=== PATIENT | female | born 1985 | race American Indian/Alaskan Native ===

== ENCOUNTER 2016-12-07 08:43 | Emergency (ER) | payer SELFPAY ==
[2016-12-07 09:00] VITALS: BP 133/95
[2016-12-07 09:20] LABS: Basophils % (Auto) 0.4 % (0.0-1.8); Eosinophils % (Auto) 0.5 % (0.0-4.3); Hematocrit 41.8 % (30.3-42.9); Hemoglobin 14.1 gm/dl (10.1-14.3); Mean Corpuscular HGB Conc 34 % (30-34); Mean Corpuscular Hemoglobin 37 pg (28-32); Mean Corpuscular Volume 108 fl (79-97); Platelet Count 222 K/mm3 (140-440); Red Blood Count 3.88 M/mm3 (3.65-5.03); Red Cell Distribution Width 15.2 % (13.2-15.2); White Blood Count 3.8 K/mm3 (4.5-11.0)
[2016-12-07 09:30] LABS: Anion Gap 17 mmol/L; BUN/Creatinine Ratio 12.85; Blood Urea Nitrogen 9 mg/dL (7-17); Calcium 9.4 mg/dL (8.4-10.2); Carbon Dioxide 26 mmol/L (22-30); Chloride 97.9 mmol/L (98-107); Glucose 101 mg/dL (65-100); Potassium 3.8 mmol/L (3.6-5.0); Sodium 137 mmol/L (137-145)
== END 2016-12-07 15:30 | disposition left against medical advice (07) ==
LOC: ED 08:43
DX: K92.1 Melena (principal); K92.0 Hematemesis; F17.200 Nicotine dependence, unspecified, uncomplicated; Z88.8 Allergy status to other drugs, medicaments and biological substances; Z53.21 Procedure and treatment not carried out due to patient leaving prior to being seen by health care provider
CPT/HCPCS: 36415; 80048; 85025

== ENCOUNTER 2018-09-04 18:00 | Emergency (ER) | payer MEDICAID, OTHER ==
[2018-09-04] MEDS ORDERED: TYLENOL ONE (18:11)
[2018-09-04] MEDS ORDERED: TYLENOL PO ONE (18:13)
[2018-09-04] MEDS ORDERED: NACL 0.9% 1000 ML IV ONE (21:08)
--- NOTE | 2018-09-04 21:10 | Emergency Department Report ---
ED General Adult HPI - General Chief complaint: Fever Stated complaint: SOB/CHEST PAIN Time Seen by Provider: 09/04/18 21:05 Source: patient Mode of arrival: Ambulatory Limitations: No Limitations - History of Present Illness Initial comments: 32-year-old female with a past medical history of alcohol abuse presents with a complaint of chest back and abdominal pain with inspiration. Patient states that she's been having cough for the past couple of weeks. Patient states it began to hurt when she breathes in today his face also hurts to cough. This is taken ibuprofen PM with minimal relief. Patient states she never received a flu shot or vomiting. Patient denies any history of PE or DVT. Patient complains of chills but denies diarrhea. Patient admits to daily alcohol use as well and states that her last use was 2 days ago. - Related Data Previous Rx's Medication Instructions Recorded Last Taken Type Ranitidine HCl [Zantac 150 MG TAB] 150 mg PO BID #30 tablet 04/03/16 Unknown Rx diphenhydrAMINE [Benadryl CAP] 25 mg PO Q6HR #30 capsule 04/03/16 Unknown Rx HYDROcodone/APAP 7.5-325 [[place] 1 each PO Q8HR PRN #10 tablet 06/14/16 Unknown Rx 7.5-325 mg TAB] Omeprazole Magnesium [PriLOSEC Otc] 20 mg PO QDAY #14 tablet. 06/14/16 Unknown Rx ALBUTEROL Inhaler(NF) [VENTOLIN 1 puff IH BID #1 inha 09/05/18 Unknown Rx Inhaler(NF)] Ciprofloxacin HCl [Ciprofloxacin 500 mg PO Q12HR #14 tab 09/05/18 Unknown Rx TAB] traMADol [Ultram] 50 mg PO Q6HR PRN #20 tablet 09/05/18 Unknown Rx Allergies Allergy/AdvReac Type Severity Reaction Status Date / Time steroids Allergy Swelling Uncoded 09/04/18 18:10 ED Review of Systems ROS: Stated complaint: SOB/CHEST PAIN Other details as noted in HPI Constitutional: chills, fever Eyes: denies: eye pain, eye discharge, vision change ENT: denies: ear pain, throat pain Respiratory: shortness of breath Cardiovascular: chest pain Endocrine: no symptoms reported Gastrointestinal: abdominal pain Genitourinary: denies: urgency, dysuria, discharge Musculoskeletal: back pain Skin: denies: rash, lesions Neurological: denies: headache, weakness, paresthesias Psychiatric: denies: anxiety, depression Hematological/Lymphatic: denies: easy bleeding, easy bruising ED Past Medical Hx - Past Medical History Additional medical history: MVP - Surgical History Past Surgical History?: No - Social History Smoking Status: Current Every Day Smoker Substance Use Type: None - Medications Home Medications: Home Medications Medication Instructions Recorded Confirmed Last Taken Type Ranitidine HCl [Zantac 150 MG TAB] 150 mg PO BID #30 tablet 04/03/16 Unknown Rx diphenhydrAMINE [Benadryl CAP] 25 mg PO Q6HR #30 capsule 04/03/16 Unknown Rx HYDROcodone/APAP 7.5-325 [[place] 1 each PO Q8HR PRN #10 tablet 06/14/16 Unknown Rx 7.5-325 mg TAB] Omeprazole Magnesium [PriLOSEC Otc] 20 mg PO QDAY #14 tablet.dr 06/14/16 Unknown Rx ALBUTEROL Inhaler(NF) [VENTOLIN 1 puff IH BID #1 inha 09/05/18 Unknown Rx Inhaler(NF)] Ciprofloxacin HCl [Ciprofloxacin 500 mg PO Q12HR #14 tab 09/05/18 Unknown Rx TAB] traMADol [Ultram] 50 mg PO Q6HR PRN #20 tablet 09/05/18 Unknown Rx ED Physical Exam - General Limitations: No Limitations General appearance: alert, other (mild distress; uncomfortable) - Head Head exam: Present: atraumatic, normocephalic - Eye Eye exam: Present: scleral icterus (mild component of scleral icterus) - ENT ENT exam: Present: mucous membranes dry - Neck Neck exam: Present: normal inspection - Respiratory Respiratory exam: Present: decreased breath sounds. Absent: respiratory distress - Cardiovascular Cardiovascular Exam: Present: normal rhythm, tachycardia. Absent: systolic murmur, diastolic murmur, rubs, gallop - GI/Abdominal GI/Abdominal exam: Present: soft, tenderness (diffusely in abdomen), normal bowel sounds. Absent: guarding, rebound - Extremities Exam Extremities exam: Present: normal inspection - Back Exam Back exam: Present: normal inspection - Neurological Exam Neurological exam: Present: alert, oriented X3 - Psychiatric Psychiatric exam: Present: normal affect, normal mood - Skin Skin exam: Present: warm, dry, intact, normal color. Absent: rash ED Course Vital Signs 09/04/18 09/04/18 09/04/18 18:10 21:17 22:00 Temperature 101.5 F H 98.6 F Pulse Rate 140 H 114 H 109 H Pulse Rate [ Anterior Bilateral Throughout] Respiratory 22 15 18 Rate Respiratory Rate [Anterior Bilateral Throughout] Blood Pressure 148/95 125/90 Blood Pressure 110/73 [Left] O2 Sat by Pulse 97 100 99 Oximetry 09/04/18 09/04/18 09/04/18 22:32 23:00 23:05 Temperature Pulse Rate 100 H 101 H 103 H Pulse Rate [ Anterior Bilateral Throughout] Respiratory 18 14 22 Rate Respiratory Rate [Anterior Bilateral Throughout] Blood Pressure 125/90 115/79 115/79 Blood Pressure [Left] O2 Sat by Pulse 100 100 100 Oximetry 09/04/18 09/04/18 09/05/18 23:31 23:45 02:00 Temperature Pulse Rate 107 H Pulse Rate [ 115 H 118 H Anterior Bilateral Throughout] Respiratory 17 Rate Respiratory 14 14 Rate [Anterior Bilateral Throughout] Blood Pressure 121/84 Blood Pressure [Left] O2 Sat by Pulse 100 Oximetry ED Medical Decision Making - Lab Data Result diagrams: 09/04/18 22:38 09/04/18 22:38 - EKG Data EKG shows normal: sinus rhythm Rate: tachycardia - EKG Data Interpretation: nonspecific ST-T wave georgie - Medical Decision Making Patient received Tylenol therapy for her fever. Patient has had a CT abdomen and pelvis which shows no acute pathology and a CT anterior chest which shows no thoracic pathology either. Patient to be treated for her UTI with antibiotic therapy and will give albuterol and Ultram for when necessary pain relief. - Differential Diagnosis Pneumonia; UTI; Dehydration; Anemia; Critical care attestation.: If time is entered above; I have spent that time in minutes in the direct care of this critically ill patient, excluding procedure time. ED Disposition Clinical Impression: Urinary tract infection, Pleurisy, Viral illness Disposition: - TO HOME OR SELFCARE Is pt being admited?: No Condition: Stable Instructions: Viral Syndrome (ED), Pleurisy (ED), Urinary Tract Infection in Women (ED) Prescriptions: ALBUTEROL Inhaler(NF) [VENTOLIN Inhaler(NF)] 1 puff IH BID #1 inha Ciprofloxacin HCl [Ciprofloxacin TAB] 500 mg PO Q12HR #14 tab traMADol [Ultram] 50 mg PO Q6HR PRN #20 tablet PRN Reason: Pain Referrals: EDMAR CHUN MD [Primary Care Provider] - 3-5 Days Time of Disposition: 02:36 Print Language: WOLOF
[2018-09-04] MEDS ORDERED: NACL 0.9% 250ML 250 ML ONE (21:30)
[2018-09-04 22:51] LABS: Basophils % (Auto) 0.1 % (0.0-1.8); Eosinophils % (Auto) 0.1 % (0.0-4.3); Hematocrit 39.8 % (30.3-42.9); Hemoglobin 13.4 gm/dl (10.1-14.3); Lymphocytes # (Auto) 0.8 K/mm3 (1.2-5.4); Lymphocytes % (Auto) 6.7 % (13.4-35.0); Mean Corpuscular HGB Conc 34 % (30-34); Mean Corpuscular Volume 109 fl (79-97); Monocytes # (Auto) 0.5 K/mm3 (0.0-0.8); Monocytes % (Auto) 4.3 % (0.0-7.3); Platelet Count 181 K/mm3 (140-440); Red Blood Count 3.65 M/mm3 (3.65-5.03); Red Cell Distribution Width 15.2 % (13.2-15.2)
--- NOTE | 2018-09-04 22:52 | XRay Report ---
FINAL REPORT EXAM: XR CHEST 1V AP HISTORY: shortness of breath TECHNIQUE: upright single view chest PRIORS: None. FINDINGS: Cardiac and mediastinal contours are unremarkable. No focal pulmonary infiltrate is identified. No pleural fluid collection seen. Pulmonary vasculature is unremarkable. IMPRESSION: Negative single-view chest
[2018-09-04 22:54] LABS: Bilirubin,Urine NEG (Negative); Blood,Urine LG (Negative); Color,Urine Yellow (Yellow); Mucus,Urine FEW /HPF; Protein,Urine <15 mg/dL mg/dL (Negative); Urobilinogen,Urine < 2.0 mg/dL (<2.0)
[2018-09-04] MEDS ORDERED: PROVENTIL IH ONE (22:54)
[2018-09-04 23:07] LABS: Alanine Aminotransferase 75 units/L (7-56); BUN/Creatinine Ratio 15; Blood Urea Nitrogen 9 mg/dL (7-17); Calcium 8.9 mg/dL (8.4-10.2); Hemolysis Index 15
--- NOTE | 2018-09-05 00:28 | Cat Scan Report ---
FINAL REPORT EXAM: CT ABDOMEN PELVIS WO CON HISTORY: abdominal pain TECHNIQUE: Helical CT scan through the abdomen and pelvis without contrast. Images are reconstructed in the sagittal and coronal planes. PRIORS: None. FINDINGS: Solid organ and bowel evaluation is limited without intravenous contrast. Bowel evaluation is limited without oral contrast. The lung bases are clear. The liver, gallbladder, pancreas, spleen and adrenal glands appear grossly normal. The kidneys appear grossly normal. The uterus appears grossly normal. The ovaries are enlarged. There are multiple phleboliths in the pe lvis. The stomach appears grossly within normal limits. The small bowel is mildly to moderate fluid distended. There are a few air-fluid levels in the left u pper quadrant. The right and transverse colon are moderately gas and fluid distended and contain air- fluid levels. The left colon appears normal. A normal-appearing appendix is identified. The abdominal aorta has a normal diameter. The bones and subcutaneous soft tissues are unremarkable for age. IMPRESSION: 1. Nonspecific bowel gas pattern. Question ileus. 2. Enlarged ovaries. Further evaluation with ultrasound is recommended.
[2018-09-05] MEDS ORDERED: MORPHINE IV ONE (02:03)
[2018-09-05] MEDS ORDERED: ZOFRAN IV ONE (02:04)
--- NOTE | 2018-09-05 02:10 | Cat Scan Report ---
FINAL REPORT PROCEDURE: CT ANGIO CHEST TECHNIQUE: Computerized axial tomographic angiography of the chest and pulmonary arteries was perfor med after the IV injection of iodinated nonionic contrast. The image data was postprocessed using max imum intensity projection (MIP) and 2-dimensional multiplanar reformatted (MPR) techniques. The exami nation is specifically tailored to the evaluation of the pulmonary arteries per clinical request. HISTORY: Short of breath 786.09, chest pain 786.50, rigoberto pain and difficulty breathing COMPARISON: No prior studies are available for comparison. FINDINGS: Heart and pericardium: Normal. Thoracic aorta: Normal. Pulmonary vasculature: Normal. No pulmonary emboli. Lymph nodes: No enlarged thoracic lymph nodes. Lungs: Normal. Pleural space: No effusion, thickening, or pneumothorax. Musculoskeletal structures: No significant abnormality. Upper abdominal structures: No significant abnormality. IMPRESSION: Normal Examination.
[2018-09-05 02:30] VITALS: BP 121/84
== END 2018-09-05 02:50 | disposition home or self-care (01) ==
LOC: ED 18:00
DX: N39.0 Urinary tract infection, site not specified (principal); B34.9 Viral infection, unspecified; R09.1 Pleurisy; F17.200 Nicotine dependence, unspecified, uncomplicated; Z88.8 Allergy status to other drugs, medicaments and biological substances
CPT/HCPCS: 36415; 71045; 71275; 74176; 80053; 81001; 82140; 82550; 83735; 84484; 84703; 85025; 86850; 86900; 86901; 87040; 87086; 87400; 93005; 93010; 94640; 96374; 96375; 99285; G0480; J2270; J2405; J7030; J7050; Q9967; 80320

== ENCOUNTER 2019-01-28 19:37 | Emergency (ER) | payer SELFPAY | END 2019-01-28 19:40 | disposition left against medical advice (07) | LOC: ED 19:37 | DX: R07.89 Other chest pain (principal); Z53.21 Procedure and treatment not carried out due to patient leaving prior to being seen by health care provider ==

== ENCOUNTER 2020-06-16 15:18 | Emergency (ER) | payer SELFPAY ==
[2020-06-16 15:57] VITALS: BP 130/86
--- NOTE | 2020-06-16 15:59 | Event Note ---
ED Screening Note ED Screening Note: two days ago +subjective fever +cough no SOB has right sided back pain states that she has pain with coughing and taking a deep breathing no n/v/d no leg swelling no CP no recent travel, no recent surgery, no sick contacts, no hormone use PMHx Mitral valve regurg allergy: steroids LNMP: last month This initial assessment/diagnostic orders/clinical plan/treatment(s) is/are subject to change based on patients health status, clinical progression and re- assessment by fellow clinical providers in the ED. Further treatment and workup at subsequent clinical providers discretion. Patient/guardian urged not to elope from the ED as their condition may be serious if not clinically assessed and managed. Initial orders include: labs, UA, urine preg, CXR
[2020-06-16 16:43] LABS: Basophils % (Auto) 0.1 % (0.0-1.8); Eosinophils % (Auto) 0.3 % (0.0-4.3); Hematocrit 39.9 % (30.3-42.9); Hemoglobin 13.5 gm/dl (10.1-14.3); Lymphocytes # (Auto) 0.5 K/mm3 (1.2-5.4); Lymphocytes % (Auto) 13.8 % (13.4-35.0); Mean Corpuscular HGB Conc 34 % (30-34); Mean Corpuscular Volume 103 fl (79-97); Monocytes # (Auto) 0.3 K/mm3 (0.0-0.8); Monocytes % (Auto) 7.7 % (0.0-7.3); Platelet Count 164 K/mm3 (140-440); Red Blood Count 3.88 M/mm3 (3.65-5.03); Red Cell Distribution Width 16.9 % (13.2-15.2)
[2020-06-16 16:47] LABS: Alanine Aminotransferase 34 units/L (7-56); Albumin 4.1 g/dL (3.9-5); BUN/Creatinine Ratio 14; Blood Urea Nitrogen 11 mg/dL (7-17); Calcium 9.7 mg/dL (8.4-10.2); Hemolysis Index 21
[2020-06-16 18:24] LABS: Bacteria,Urine 1+ /HPF (Negative); Bilirubin,Urine NEG (Negative); Blood,Urine MOD (Negative); Color,Urine Amber (Yellow); Mucus,Urine 1+ /HPF; Protein,Urine >500 mg/dL (Negative)
[2020-06-16 19:10] LABS: HCG Qualitative,Urine Negative (Negative)
[2020-06-16] MEDS ORDERED: KETOROLAC 30 MG/1 ML INJ IV ONE (19:34)
[2020-06-16] MEDS ORDERED: SODIUM CHLORIDE 0.9% 1000 ML 1,000 ML IV ONE (19:34)
--- NOTE | 2020-06-16 19:41 | Emergency Department Report ---
ED General Adult HPI - General Chief complaint: Back Pain/Injury Stated complaint: FEVER, BACK PAIN Time Seen by Provider: 06/16/20 15:56 Source: patient Mode of arrival: Ambulatory Limitations: No Limitations - History of Present Illness Initial comments: Patient is a 34-year-old -[place]i female with a history of MVP who presented to the ED with acute onset persistent right flank and right-sided pleuritic chest pain that radiates to the mid posterior thoracic area and right flank for the last 3 days. Patient also complaints of persistent dry cough with pleuritic chest pain worse on the right side. Patient states that she also had subjective fever and chills 2 days ago but treated the same with Tylenol. Patient denies dizziness, syncope, nausea, vomiting, headache, shortness of breath, traumatic injury or heavy lifting, hemoptysis, dysuria, urinary frequency and urgency, diarrhea, sore throat or headache. MD Complaint: Dry cough; pleuritic right-sided chest pain; mid posterior thoracic pain -: Sudden, days(s) (3) Location: chest, back Radiation: back (Mid posterior right-sided thoracic pain) Severity scale (0 -10): 7 Quality: aching, sharp Consistency: constant Improves with: none Worsens with: none Associated Symptoms: denies other symptoms, chest pain (pleuritic chest pain), cough, shortness of breath. denies: confusion, diaphoresis, fever/chills, headaches, loss of appetite, malaise, nausea/vomiting, rash, syncope, weakness, other Treatments Prior to Arrival: none - Related Data Previous Rx's Medication Instructions Recorded Last Taken Type diphenhydrAMINE [Benadryl CAP] 25 mg PO Q6HR #30 capsule 04/03/16 Unknown Rx raNITIdine HCl [Zantac 150 MG TAB] 150 mg PO BID #30 tablet 04/03/16 Unknown Rx HYDROcodone/APAP 7.5-325 [[place] 1 each PO Q8HR PRN #10 tablet 06/14/16 Unknown Rx 7.5-325 mg TAB] Omeprazole Magnesium [PriLOSEC Otc] 20 mg PO QDAY #14 tablet 06/14/16 Unknown Rx ALBUTEROL Inhaler(NF) [VENTOLIN 1 puff IH BID #1 inha 09/05/18 Unknown Rx Inhaler(NF)] Ciprofloxacin HCl [Ciprofloxacin 500 mg PO Q12HR #14 tab 09/05/18 Unknown Rx TAB] traMADoL [Ultram] 50 mg PO Q6HR PRN #20 tablet 09/05/18 Unknown Rx Acetaminophen [Acetaminophen TAB] 1,000 mg PO Q6HR PRN #30 tablet 05/05/19 Unknown Rx Amoxicillin/Potassium Clav 1 each PO BID 10 Days #20 tablet 05/05/19 Unknown Rx [Augmentin 875-125 Tablet] Metoclopramide [Reglan] 10 mg PO Q6H PRN #30 tablet 05/05/19 Unknown Rx diphenhydrAMINE [Benadryl CAP] 25 mg PO Q6HR PRN #30 capsule 05/05/19 Unknown Rx Cyclobenzaprine [Flexeril] 10 mg PO Q12H PRN #20 tablet 06/16/20 Unknown Rx Ketorolac [Toradol] 10 mg PO Q8H PRN #20 tablet 06/16/20 Unknown Rx cephALEXin [Keflex] 500 mg PO Q8HR #30 cap 06/16/20 Unknown Rx Allergies Allergy/AdvReac Type Severity Reaction Status Date / Time steroids Allergy Swelling Uncoded 09/04/18 18:10 ED Review of Systems ROS: Stated complaint: FEVER, BACK PAIN Other details as noted in HPI Constitutional: denies: chills, fever Eyes: denies: eye pain, eye discharge, vision change ENT: denies: ear pain, throat pain Respiratory: cough (dry), shortness of breath. denies: wheezing Cardiovascular: chest pain (right-sided pleuritic chest pain). denies: palpitations, dyspnea on exertion, edema, paroxysmal nocturnal dyspnea Endocrine: no symptoms reported Gastrointestinal: denies: abdominal pain, nausea, vomiting, diarrhea, constipation, hematemesis, hematochezia Genitourinary: denies: urgency, dysuria, frequency, discharge Musculoskeletal: back pain (Right-sided mid-posterior thoracic pain). denies: joint swelling, arthralgia Skin: denies: rash, lesions Neurological: denies: headache, weakness, paresthesias Psychiatric: denies: anxiety, depression Hematological/Lymphatic: denies: easy bleeding, easy bruising ED Past Medical Hx - Past Medical History Previous Medical History?: Yes Additional medical history: MVP - Surgical History Past Surgical History?: No - Social History Smoking Status: Never Smoker Substance Use Type: None - Medications Home Medications: Home Medications Medication Instructions Recorded Confirmed Last Taken Type diphenhydrAMINE [Benadryl CAP] 25 mg PO Q6HR #30 capsule 04/03/16 Unknown Rx raNITIdine HCl [Zantac 150 MG TAB] 150 mg PO BID #30 tablet 04/03/16 Unknown Rx HYDROcodone/APAP 7.5-325 [[place] 1 each PO Q8HR PRN #10 tablet 06/14/16 Unknown Rx 7.5-325 mg TAB] Omeprazole Magnesium [PriLOSEC Otc] 20 mg PO QDAY #14 tablet. 06/14/16 Unknown Rx ALBUTEROL Inhaler(NF) [VENTOLIN 1 puff IH BID #1 inha 09/05/18 Unknown Rx Inhaler(NF)] Ciprofloxacin HCl [Ciprofloxacin 500 mg PO Q12HR #14 tab 09/05/18 Unknown Rx TAB] traMADoL [Ultram] 50 mg PO Q6HR PRN #20 tablet 09/05/18 Unknown Rx Acetaminophen [Acetaminophen TAB] 1,000 mg PO Q6HR PRN #30 tablet 05/05/19 Unknown Rx Amoxicillin/Potassium Clav 1 each PO BID 10 Days #20 tablet 05/05/19 Unknown Rx [Augmentin 875-125 Tablet] Metoclopramide [Reglan] 10 mg PO Q6H PRN #30 tablet 05/05/19 Unknown Rx diphenhydrAMINE [Benadryl CAP] 25 mg PO Q6HR PRN #30 capsule 05/05/19 Unknown Rx Cyclobenzaprine [Flexeril] 10 mg PO Q12H PRN #20 tablet 06/16/20 Unknown Rx Ketorolac [Toradol] 10 mg PO Q8H PRN #20 tablet 06/16/20 Unknown Rx cephALEXin [Keflex] 500 mg PO Q8HR #30 cap 06/16/20 Unknown Rx ED Physical Exam - General Limitations: No Limitations General appearance: alert, in no apparent distress - Head Head exam: Present: atraumatic, normocephalic, normal inspection - Eye Eye exam: Present: normal appearance, PERRL, EOMI Pupils: Present: normal accommodation - ENT ENT exam: Present: normal exam, normal orophraynx, mucous membranes moist, TM's normal bilaterally, normal external ear exam - Neck Neck exam: Present: normal inspection, full ROM - Respiratory Respiratory exam: Present: normal lung sounds bilaterally, chest wall tenderness (Pleuritic right-sided chest tenderness). Absent: respiratory distress, wheezes, rales, rhonchi, stridor, accessory muscle use, decreased breath sounds, prolonged expiratory - Cardiovascular Cardiovascular Exam: Present: normal rhythm, tachycardia, normal heart sounds. Absent: systolic murmur, diastolic murmur, rubs, gallop - GI/Abdominal GI/Abdominal exam: Present: soft, normal bowel sounds. Absent: tenderness, guarding, rebound, hyperactive bowel sounds, hypoactive bowel sounds, organomegaly - Extremities Exam Extremities exam: Present: normal inspection, full ROM, normal capillary refill - Back Exam Back exam: Present: normal inspection, full ROM, tenderness (Palpable right- sided posterior midthoracic paraspinal musculoskeletal tenderness), muscle spasm, paraspinal tenderness - Neurological Exam Neurological exam: Present: alert, oriented X3, CN II-XII intact, normal gait, reflexes normal - Psychiatric Psychiatric exam: Present: normal affect, normal mood - Skin Skin exam: Present: warm, dry, intact, normal color. Absent: rash ED Course Vital Signs 06/16/20 06/16/20 15:34 16:01 Temperature 98.0 F Pulse Rate 114 H 112 H Respiratory 14 Rate Blood Pressure 130/86 O2 Sat by Pulse 99 Oximetry ED Medical Decision Making - Lab Data Result diagrams: 06/16/20 16:09 06/16/20 16:09 - Radiology Data Radiology results: report reviewed, [place] [address] Cat Scan Report Signed Patient: ADDIE GUZMÁN MR#: [id number] : 1985 Acct:[id number] Age/Sex: 34 / F ADM Date: 06/16/20 Loc: ED Attending Dr: Ordering Physician: JOHN URENA Date of Service: 06/16/20 Procedure(s): CT angio chest Accession Number(s): [id number] cc: JOHN URENA CTA CHEST WITH IV CONTRAST INDICATION: SOB, CP, elevated d-dimer. TECHNIQUE: Axial CT images were obtained through the chest after injection of 100 cc Omni 300 IV contrast. 3 plane MIP reconstructions were produced. All CT scans at this location are performed using CT dose reduction for ALARA by means of automated exposure control. COMPARISON: CTA chest 09/05/2018 FINDINGS: PULMONARY ARTERIES: No pulmonary emboli. THORACIC AORTA: No acute abnormality. HEART: Normal. CORONARY ARTERIES: No significant calcification. PLEURA: No pleural effusion. No pneumothorax. LYMPH NODES: No significant adenopathy. LUNGS: No acute air space or interstitial disease. ADDITIONAL FINDINGS: None. UPPER ABDOMEN: Focal fatty infiltration within the caudate and medial lateral hepatic segments abutting the intersegmental fissure. SKELETAL STRUCTURES: No significant osseous abnormality. IMPRESSION: 1. No CT evidence for pulmonary embolism. 2. No acute findings. Signer Name: Jaime Guzman MD Signed: 06/16/2020 8:30 PM Workstation Name: [id number] Transcribed By: TL Dictated By: Jaime Guzman MD Electronically Authenticated By: Jaime Guzman MD Signed Date/Time: 06/16/202029 DD/ 20 TD/TT: Findings [facility] [address] [place] [address] XRay Report Signed Patient: ADDIE GUZMÁN MR#: [id number] : 1985 Acct:[id number] Age/Sex: 34 / F ADM Date: 06/16/20 Loc: ED Attending Dr: Ordering Physician: JOHN URENA Date of Service: 06/16/20 Procedure(s): XR chest routine 2V Accession Number(s): [id number] cc: JOHN URENA Fluoro Time In Minutes: CHEST 2 VIEWS INDICATION / CLINICAL INFORMATION: cough, right upper back pain. COMPARISON: Chest x-ray 09/04/2018 FINDINGS: SUPPORT DEVICES: None. HEART / MEDIASTINUM: No significant abnormality. LUNGS / PLEURA: No significant pulmonary or pleural abnormality. No pneumothorax. ADDITIONAL FINDINGS: No significant additional findings. IMPRESSION: 1. No acute findings. Signer Name: Jaime Guzman MD Signed: 06/16/2020 8:41 PM Workstation Name: [id number] Transcribed By: TL Dictated By: Jaime Guzman MD Electronically Authenticated By: Jaime Guzman MD Signed Date/Time: 06/16/202040 DD/ 40 TD/TT: - Medical Decision Making This is a 34-year-old -[place]i female with a history of MVP who presented to the ED with acute onset persistent right flank and right-sided p leuritic chest pain that radiates to the mid posterior thoracic area and right flank for the last 3 days. Patient also complaints of persistent dry cough with pleuritic chest pain worse on the right side. Patient states that she also had subjective fever and chills 2 days ago but treated the same with Tylenol. In the ED, patient is alert and oriented x3 and is not in distress. Patient is however tachycardic and febrile in triage. Patient was treated for pain in the ED and lab test results were reviewed and showed D-dimer level of 405.82, AST of 55 and the rest of the lab test results are nonactionable. Urinalysis however showed significant urinary tract infection. Chest x-ray showed no acute cardiopulmonary abnormalities or pneumonitis. Chest CTA showed no evidence of PE or any cardiopulmonary abnormalities or pneumonitis. Patient also received Rocephin 1 g IV x1 in the ED. On reevaluation, patient's pain resolved with medications and tachycardia also resolved. Patient will discharge home on medications including antibiotics for UTI and was advised to follow-up with her primary care physician in 7 to 10 days for reevaluation or return to the ED immediately if symptoms get worse. - Differential Diagnosis Kidney stones; Pneumonia; ACS; PE; Pyelonephritis; Back pain Critical care attestation.: If time is entered above; I have spent that time in minutes in the direct care of this critically ill patient, excluding procedure time. ED Disposition Clinical Impression: Pleuritic chest pain, Acute urinary tract infection, Mid back pain on right side Disposition: DC-01 TO HOME OR SELFCARE Is pt being admited?: No Does the pt Need Aspirin: No Condition: Stable Instructions: Chest Pain (ED), Nonspecific Chest Pain, Adult, [id number], Urinary Tract Infection, Adult, [id number] Additional Instructions: Take medication with food, drink plenty of fluids and follow-up with your primary care physician in 7 to 10 days for reevaluation. Return to the ED immediately if symptoms get worse. Prescriptions: Cyclobenzaprine [Flexeril] 10 mg PO Q12H PRN #20 tablet PRN Reason: Muscle Spasm cephALEXin [Keflex] 500 mg PO Q8HR #30 cap Ketorolac [Toradol] 10 mg PO Q8H PRN #20 tablet PRN Reason: Pain Forms: Work/School Release Form(ED) Time of Disposition: 22:47 Print Language: NEPALESE
--- NOTE | 2020-06-16 20:34 | Cat Scan Report ---
CTA CHEST WITH IV CONTRAST INDICATION: SOB, CP, elevated d-dimer. TECHNIQUE: Axial CT images were obtained through the chest after injection of 100 cc Omni 300 IV contrast. 3 jeff ne MIP reconstructions were produced. All CT scans at this location are performed using CT dose reduc tion for ALARA by means of automated exposure control. COMPARISON: CTA chest 09/05/2018 FINDINGS: PULMONARY ARTERIES: No pulmonary emboli. THORACIC AORTA: No acute abnormality. HEART: Normal. CORONARY ARTERIES: No significant calcification. PLEURA: No pleural effusion. No pneumothorax. LYMPH NODES: No significant adenopathy. LUNGS: No acute air space or interstitial disease. ADDITIONAL FINDINGS: None. UPPER ABDOMEN: Focal fatty infiltration within the caudate and medial lateral hepatic segments abutti ng the intersegmental fissure. SKELETAL STRUCTURES: No significant osseous abnormality. IMPRESSION: 1. No CT evidence for pulmonary embolism. 2. No acute findings. Signer Name: Jaime Guzman MD Signed: 06/16/2020 8:30 PM Workstation Name: [id number]
--- NOTE | 2020-06-16 20:46 | XRay Report ---
CHEST 2 VIEWS INDICATION / CLINICAL INFORMATION: cough, right upper back pain. COMPARISON: Chest x-ray 09/04/2018 FINDINGS: SUPPORT DEVICES: None. HEART / MEDIASTINUM: No significant abnormality. LUNGS / PLEURA: No significant pulmonary or pleural abnormality. No pneumothorax. ADDITIONAL FINDINGS: No significant additional findings. IMPRESSION: 1. No acute findings. Signer Name: Jaime Guzman MD Signed: 06/16/2020 8:41 PM Workstation Name: [id number]
[2020-06-16] MEDS ORDERED: cefTRIAXone/NS 1 GM/50 ML 1 GM/50 ML BAG IV ONE (22:07)
== END 2020-06-16 23:25 | disposition home or self-care (01) ==
LOC: ED 15:18
DX: N39.0 Urinary tract infection, site not specified (principal); M54.9 Dorsalgia, unspecified; R07.89 Other chest pain; Z79.899 Other long term (current) drug therapy; Z88.8 Allergy status to other drugs, medicaments and biological substances
CPT/HCPCS: 36415; 71046; 71275; 80053; 81001; 81025; 84484; 84703; 85025; 85379; 87086; 93005; 96361; 96365; 96375; 99284; J0696; J1885; J7030; Q9967